=== PATIENT | male | born 1980 | race African-American/Black ===

== ENCOUNTER 2020-02-09 11:42 | Emergency (ER) | payer OTHER, SELFPAY ==
--- NOTE | ~2020-02-09 | CT_ITS ---
EXAMINATION: CT facial bones wo con DATE: 02/09/2020 13:33 INDICATION: Foreign body in the left air. Q-tip stuck in nose. TECHNIQUE: Computed tomography (CT) of the facial bones was performed without intravenous contrast. T he dose-length product was 710.73 mGy-cm. Automated exposure control and iterative reconstruction florentin hnique were employed. COMPARISON: None FINDINGS: There is a tubelike foreign body in the left nasal airway which is vertically oriented with the superior aspect abutting the ethmoid sinus. There is mild mucosal thickening of the maxillary an d ethmoid sinuses. Mastoids are pneumatized. There are mucous retention cyst of the left maxillary si nus. IMPRESSION: 1. Vertically oriented tubelike foreign body left nasal airway measuring approximately 3 cm in length . Reviewed, dictated and finalized at location [facility]. IMPRESSION: 1. Vertically oriented tubelike foreign body left nasal airway measuring approx imately 3 cm in length.
[2020-02-09 11:46] VITALS: BP 132/81; PULSE 119; RESP 18; TEMP 37.3; O2SAT 100
--- NOTE | 2020-02-09 13:17 | ED.GENADULT ---
HPI - General Adult General Chief complaint: Unspecified <Cora Hilton PA-C - Last Filed: 02/09/20 15:03> Stated complaint: Q TIP IN NOSE <Cora Hilton PA-C - Last Filed: 02/09/20 15:03> Time Seen by Provider: 02/09/20 11:55 <Cora Hilton PA-C - Last Filed: 02/09/20 15:03> Source: patient <Cora Hilton PA-C - Last Filed: 02/09/20 15:03> Mode of arrival: ambulatory <Cora Hilton PA-C - Last Filed: 02/09/20 15:03> Limitations: no limitations <Cora Hilton PA-C - Last Filed: 02/09/20 15:03> History of Present Illness HPI narrative: This is a 39 year old male that presents to the ER for possible foreign body in the nose. Reports he was trying to use a qtip to get some tissue out of his nose and the qtip got stuck. Reports he was seen at [facility] for this and he thinks they only partially removed the object. Denies fever or pain. <Cora Hilton PA-C - Last Filed: 02/09/20 15:03> Related Data Allergies/adverse reactions: Allergies Allergy/AdvReac Type Severity Reaction Status Date / Time No Known Allergies Allergy Unverified 10/27/17 01:01 <Cora Hilton PA-C - Last Filed: 02/09/20 15:03> Review of Systems Review of Systems: Narrative: CONSTITUTIONAL: Denies fever ENT: Reports rhinorrhea, epistaxis <Cora Hilton PA-C - Last Filed: 02/09/20 15:03> All systems reviewed & are unremarkable except as noted in HPI and below <Cora Hilton PA-C - Last Filed: 02/09/20 15:03> COUNTS INCLUDE 234 BEDS AT THE [facility] Past Medical History Medical History: Medical History (Updated 02/09/20 @ 15:01 by Cora Hilton PA-C) History of diabetes mellitus History of hypertension <Cora Hilton PA-C - Last Filed: 02/09/20 15:03> Social History Social History: Social History (Updated 02/09/20 @ 13:19 by Cora Hilton PA-C) Smoking status: Current every day smoker <Cora Hilton PA-C - Last Filed: 02/09/20 15:03> Exam Narrative: Exam Narrative: GENERAL: Well-appearing, well-nourished, and in no acute distress. HEAD: Normocephalic, atraumatic. EYES: EOMI. ENT: Bilateral nares with dried blood, no active bleeding. No foreign bodies noted in the nares EXTREMITIES: Normal range of motion. No edema. SKIN: Warm, dry, no rash. NEURO: No focal deficits. Alert and oriented x3. PSYCH: Normal mood and affect <Cora Hilton PA-C - Last Filed: 02/09/20 15:03> Course Consultations Consultation #1: Spoke with the ENT doctor at [facility] who reports he can follow-up in clinic. He will be contacted for an appointment <Cora Hilton PA-C - Last Filed: 02/09/20 15:03> Date: 02/09/20 <Cora Hilton PA-C - Last Filed: 02/09/20 15:03> Time: 14:58 <Cora Hilton PA-C - Last Filed: 02/09/20 15:03> Vital Signs Vital signs: Vital Signs Temperature 37.3 C 02/09/20 11:46 Pulse Rate 119 H 02/09/20 11:46 Respiratory Rate 18 02/09/20 11:46 Blood Pressure 132/81 02/09/20 11:46 Pulse Oximetry 100 02/09/20 11:46 Temperature 37.3 C 02/09/20 11:46 Pulse Rate 88 02/09/20 14:34 Respiratory Rate 18 02/09/20 14:34 Blood Pressure 135/68 02/09/20 14:34 Pulse Oximetry 95 02/09/20 14:34 <Cora Hilton PA-C - Last Filed: 02/09/20 15:03> Vital Signs Temperature 37.3 C 02/09/20 11:46 Pulse Rate 119 H 02/09/20 11:46 Respiratory Rate 18 02/09/20 11:46 Blood Pressure 132/81 02/09/20 11:46 Pulse Oximetry 100 02/09/20 11:46 Temperature 37.3 C 02/09/20 11:46 Pulse Rate 88 02/09/20 14:34 Respiratory Rate 18 02/09/20 14:34 Blood Pressure 135/68 02/09/20 14:34 Pulse Oximetry 95 02/09/20 14:34 <Crissy Torres MD - Last Filed: 02/09/20 15:16> Medical Decision Making MDM Narrative Medical decision making narrative: Patient presents the emergency department for possible foreign body in the nose. Reports he stuck a Q-tip in his nose to try and get tissue out of his nos
[2020-02-09 14:34] VITALS: BP 135/68; PULSE 88; RESP 18; O2SAT 95
== END 2020-02-09 15:10 | disposition home or self-care (01) ==
PROVIDERS: Emergency Provider Emergency Medicine
DX: T17.1XXA Foreign body in nostril, initial encounter (principal); E11.9 Type 2 diabetes mellitus without complications; I10 Essential (primary) hypertension; F17.200 Nicotine dependence, unspecified, uncomplicated
CPT/HCPCS: 70486; 99284